=== PATIENT | male | born 1935 | race Caucasian/White ===

== ENCOUNTER → 2020-12-03 | Outpatient (CLI) | payer MEDICARE ==
--- NOTE | 2020-12-03 10:36 | Diagnostic Imaging Report ---
INDICATION: Right ankle pain, fall. TIME OF EXAM: 09:38 a.m. COMPARISON: No prior studies are available for comparison. 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 Spurring of the distal tibia is noted. No fractures are identified. There is some soft tissue swelling about the medial and lateral ankle. There is no dislocation. 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 No acute fracture is detected. Dictated by: Dictated on workstation # [id number]
== END ==
LOC: RAD FS 09:20
PROVIDERS: ATTEND Nurse Practitioner
DX: M19.071 Primary osteoarthritis, right ankle and foot (principal)
CPT/HCPCS: 73610

== ENCOUNTER 2022-08-10 11:31 | Outpatient (RCR) | payer MEDICARE | END 2022-08-30 | disposition home or self-care (01) | LOC: ONC 11:31 | PROVIDERS: ATTEND Internal Medicine Hematology & Oncology | DX: C61 Malignant neoplasm of prostate (principal) | CPT/HCPCS: 84153; G0463; 99204 ==

== ENCOUNTER 2022-11-08 10:32 | Outpatient (RCR) | payer MEDICARE ==
[~2022-11-08 10:32] MED LIST: LEUPROLIDE 22.5 MG SYRINGE (ELIGARD) SQ SCH
== END 2022-11-27 | disposition home or self-care (01) ==
LOC: ONC 10:32
PROVIDERS: ATTEND Internal Medicine Hematology & Oncology
DX: Z51.11 Encounter for antineoplastic chemotherapy (principal); C61 Malignant neoplasm of prostate
CPT/HCPCS: 36415; 84153; 96402

== ENCOUNTER 2023-02-07 09:48 | Outpatient (RCR) | payer MEDICARE | END 2023-02-27 | disposition home or self-care (01) | LOC: ONC 09:48 | PROVIDERS: ATTEND Internal Medicine Hematology & Oncology | DX: Z51.11 Encounter for antineoplastic chemotherapy (principal); C61 Malignant neoplasm of prostate | CPT/HCPCS: 36415; 84153; 96402 ==

== ENCOUNTER 2023-05-02 10:01 | Outpatient (RCR) | payer MEDICARE | END 2023-05-30 | disposition home or self-care (01) | LOC: ONC 10:01 | PROVIDERS: ATTEND Internal Medicine Hematology & Oncology | DX: Z51.11 Encounter for antineoplastic chemotherapy (principal); C61 Malignant neoplasm of prostate | CPT/HCPCS: 36415; 84153; 96402; 99214 ==